=== PATIENT | female | born 2000 | race Caucasian/White ===

== ENCOUNTER 2021-02-12 10:08 | Emergency (ER) | payer OTHER ==
[~2021-02-12] VITALS: Ht 170.2 cm; Wt 54.4 kg
[2021-02-12 10:20] VITALS: BP_SYST 118
[2021-02-12] MEDS ORDERED: ACETAMINOPHEN 325 MG TABLET PO ONE (10:45)
[2021-02-12 12:19] VITALS: BP_SYST 105
== END 2021-02-12 12:19 | disposition home or self-care (01) ==
LOC: SED 10:08
DX: S02.2XXB Fracture of nasal bones, initial encounter for open fracture (principal); W51.XXXA Accidental striking against or bumped into by another person, initial encounter; Y93.67 Activity, basketball; Y92.89 Other specified places as the place of occurrence of the external cause; Y99.8 Other external cause status
CPT/HCPCS: 70160-TC; 99283